=== PATIENT | male | born 1965 | race Caucasian/White ===

== ENCOUNTER 2017-03-26 16:24 | Emergency (ER) | payer OTHER ==
[2017-03-26] MEDS: HYDROCODONE/APAP (10/325) TAB PO (20:07)
[2017-03-26 20:16] LABS: ADD MAN DIFF? NO
[2017-03-26 20:18] LABS: WHITE BLOOD COUNT 8.4 10^3/ul (4.8-10.8)
[2017-03-26 20:18] LABS: BASOPHILS % 0.4 % (0.0-2.0); EOSINOPHILS # 0.1 10^3/ul (0.0-0.5); EOSINOPHILS % 0.6 % (0.0-7.0); HEMATOCRIT 41.1 % (42.0-52.0); HEMOGLOBIN 13.7 g/dl (14.0-18.0); LYMPHOCYTES # 1.8 10^3/ul (0.8-2.9); LYMPHOCYTES % 21.3 % (15.0-51.0); MEAN CORPUSCULAR HEMOGLOBIN 30.5 pg (29.0-33.0); MEAN CORPUSCULAR HGB CONC 33.3 g/dl (32.0-37.0); MEAN CORPUSCULAR VOLUME 91.5 fl (82.0-101.0); MEAN PLATELET VOLUME 9.9 fl (7.4-10.4); MONOCYTE # 0.9 10^3/ul (0.3-0.9); MONOCYTES % 10.4 % (0.0-11.0); NEUTROPHIL # 5.6 10^3/ul (1.6-7.5); NEUTROPHILS % 67.1 % (39.0-77.0); PLATELET COUNT 203 10^3/UL (140-415); RED BLOOD COUNT 4.49 10^6/ul (4.70-6.10); RED CELL DISTRIBUTION WIDTH 12.9 % (11.5-14.5)
[2017-03-26 20:37] LABS: ALANINE AMINOTRANSFERASE 35 IU/L (13-69); ALBUMIN 4.4 g/dl (3.3-4.9); ALBUMIN/GLOBULIN RATIO 1.29; ALKALINE PHOSPHATASE 75 IU/L (42-121); ANION GAP 16 (8-16); ASPARTATE AMINO TRANSFERASE 22 IU/L (15-46); BILIRUBIN,INDIRECT 0.8 mg/dl (0-1.1); BILIRUBIN,TOTAL 0.8 mg/dl (0.2-1.3); BLOOD UREA NITROGEN 14 mg/dl (7-20); CALCIUM 9.1 mg/dl (8.4-10.2); CARBON DIOXIDE 26 mmol/L (21-31); CHLORIDE 103 mmol/L (97-110); CREATININE 1.02 mg/dl (0.61-1.24); GLUCOSE 126 mg/dl (70-220); SODIUM 141 mmol/L (135-144); TOTAL PROTEIN 7.8 g/dl (6.1-8.1)
[2017-03-26] MEDS: COLCHICINE 0.6 MG TAB PO ×2 (21:35)
[2017-03-26 21:38] LABS: URIC ACID 4.7 mg/dl (3.1-7.9)
[2017-03-27] MEDS: HYDROCODONE/APAP (10/325) TAB PO (01:28)
== END 2017-03-27 01:29 | disposition home or self-care (01) ==
LOC: FTE 03-27 01:29
DX: M15.9 Polyosteoarthritis, unspecified (principal); M25.462 Effusion, left knee; M25.461 Effusion, right knee; I10 Essential (primary) hypertension; Z87.891 Personal history of nicotine dependence
CPT/HCPCS: 73562; 73562-50; 80053; 84560; 85025; 99284-25

== ENCOUNTER 2018-02-14 07:14 | Emergency (ER) | payer OTHER ==
[2018-02-14 08:20] LABS: ADD MAN DIFF? NO
[2018-02-14 08:22] LABS: WHITE BLOOD COUNT 3.6 10^3/ul (4.8-10.8)
[2018-02-14 08:22] LABS: BASOPHILS % 0.3 % (0.0-2.0); EOSINOPHILS # 0.1 10^3/ul (0.0-0.5); EOSINOPHILS % 2.5 % (0.0-7.0); HEMATOCRIT 44.5 % (42.0-52.0); LYMPHOCYTES # 1.2 10^3/ul (0.8-2.9); MEAN CORPUSCULAR HEMOGLOBIN 31.3 pg (29.0-33.0); MEAN CORPUSCULAR HGB CONC 33.7 g/dl (32.0-37.0); MEAN CORPUSCULAR VOLUME 92.7 fl (82.0-101.0); MEAN PLATELET VOLUME 9.9 fl (7.4-10.4); MONOCYTE # 0.2 10^3/ul (0.3-0.9); MONOCYTES % 6.4 % (0.0-11.0); NEUTROPHIL # 2.1 10^3/ul (1.6-7.5); NEUTROPHILS % 58.2 % (39.0-77.0); PLATELET COUNT 179 10^3/UL (140-415)
[2018-02-14 08:39] LABS: ANION GAP 8 (5-13); BLOOD UREA NITROGEN 17 mg/dl (7-20); CALCIUM 9.5 mg/dl (8.4-10.2); CARBON DIOXIDE 29 mmol/L (21-31); CHLORIDE 105 mmol/L (97-110); CREATININE 1.05 mg/dl (0.61-1.24); Estimated GFR > 60 mL/min (>60); GLUCOSE 138 mg/dl (70-220); SODIUM 142 mmol/L (135-144)
[2018-02-14 08:51] LABS: TROPONIN-I < 0.012 ng/ml (0.000-0.120)
[2018-02-14] MEDS: SOD CHLORIDE 0.9% 100 ML (12:23)
[2018-02-14] MEDS: IOHEXOL 100 ML (12:24)
[2018-02-14 13:55] LABS: TROPONIN-I < 0.012 ng/ml (0.000-0.120)
[2018-02-14] MEDS: ASPIRIN 325 MG TAB PO (14:30)
== END 2018-02-14 14:40 | disposition home or self-care (01) ==
LOC: E/R 07:14
DX: R20.0 Anesthesia of skin (principal); R20.2 Paresthesia of skin; I10 Essential (primary) hypertension; R07.9 Chest pain, unspecified; F41.9 Anxiety disorder, unspecified; R40.2252 Coma scale, best verbal response, oriented, at arrival to emergency department; R40.2362 Coma scale, best motor response, obeys commands, at arrival to emergency department; R40.2142 Coma scale, eyes open, spontaneous, at arrival to emergency department
CPT/HCPCS: 36415; 70450; 70496; 70551; 71045; 80048; 84484; 85025; 93005; 93971; 99285-25